=== PATIENT | male | born 1950 | race Caucasian/White ===

== ENCOUNTER 2025-06-29 19:20 | Inpatient (IN) | payer BC, SELFPAY ==
[2025-06-29] VITALS (17 sets, daily range): BP systolic 117–165; BP diastolic 68–94; PULSE 84–106; RESP 18–31; TEMP 36.7–38.3; O2SAT 94–97; BMI 25.8; BMI 28.8
--- OUTSIDE RECORDS SUMMARY | 2025-06-29 19:23 | XMS_ITS | Clinical Summary ---
Author Organization [email or web address] [facility] Address [address] [place] [id number] Care Team Providers Care Corn Chip Maker Name Role Phone Pcp, No Primary Care Provider Unavailabl e Allergies No known active allergies Medications aspirin enteric coated (ECOTRIN) 325 mg tablet Take 1 tablet by mouth once daily with a meal. 0 1 Active rosuvastatin (CRESTOR) 10 mg tabletIndications:M ixed hyperlipidemia Take 1 Tablet (10 mg) by mouth at bedtime. 90 Tablet 3 2 Active terazosin (HYTRIN) 2 mg capsuleIndications: Benign prostatic hyperplasia with urinary hesitancy Take 1 capsule by mouth once daily at bedtime 90 Capsule 3 Active Active Problems Problem Noted Date Diagnosed Date Benign prostatic hypertrophy 02/02/2012 Immunizations Immunization Administration Dates Next Due AMB INFLUENZA IIV3 (AGE 65+ YRS) PF (Flu Clinic Only) 10/23/2019 Influenza, High-dose Inactivated 09/09/2020 Influenza, High-dose Quadrivalent Inactivated Influenza, IIV3 (Age 6-35 mos) 10/11/2017,2010 Influenza, IIV3 (Age >=3 years) 10/12/2011 Influenza, IIV4 09/18/2018,09/14/2018 Influenza, Inactivated AIIV4 (Age 65+ Years) Preserv Free 08/19/2022 Pneumococcal Poly,23-Valent (Pneumovax) 11/05/20 20 Pneumococcal conj 13-Valent (Prevnar 13) 019 Tdap 11/05/2020 Family History Medical History Relation Name Comments Stroke Father Heart Disease Maternal Grandmother Other Mother brain tumor Relation Name Status Comments Father Maternal Grandmother Mother Social History Tobacco Use Types Packs/Day Years Used Date Smoking Tobacco: Never Smokeless Tobacco: Never Tobacco Cessation:Counseling Given: Yes Alcohol Use Standard Drinks/Week Comments No 0 (1 standard drink = 0.6 oz pur e alcohol) PHQ-2 Answer Date Recorded PHQ-2 Score 0 02/23/2019 Financial Resource Strain Answer Date R ecorded Difficulty of Paying Living Expenses Not on file 11/28/2021 Difficulty of Paying Living Expenses Not on file 11/28/2021 Sex and Gender Information Value Date Recorded Sex Assigned at Not on file Legal Sex Male 5:48 AM 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 NURSE 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 Gender Identity Not on file Sexual Orientation Not on file Obstetrics History Last Filed Vital Signs Vital Sign Reading Time Taken Comments Blood Pressure 128/80 09/19/2023 12:56 PM CDT Pulse 64 09/19/2023 12:56 PM CDT Temperature 36.2 C (97.1 F) 02/23/2019 2:51 PM CDT Respiratory Rate 16 09/19/2023 12:56 PM CDT Oxygen Saturation 99% 09/19/2023 12:56 PM CDT Inhaled Oxygen Concentration - - Weight 87.6 kg (193 lb 3.2 oz) 09/19/2023 12:56 PM CDT Height 178.5 cm (5' 10.28) 11/05/2020 9:[address] Body Mass Index 27.5 11/05/2020 9:35 AM ADMISSION NURSE COORDINATOR Plan of Treatment Health Maintenance Due Date Last Done Comments Zoster (shingles) series for age 50+ (1 of 2) 2001 Depression screening for age 12+ 02/24/2020 02/23/2019 BMI (ht and wt on same day) for age 18+ 11/05/2021 11/05/2020, 02/23/2019 Fecal testing non-DNA (FIT,FOBT,iFOBT) for age 45-75 03/18/2022 03/18/2021 COVID-19 vaccine series ( season) 2024 08/25/2023, 06/22/2022, 12/30/2021, Additional history exists Influenza Vaccine (#1) 2025 2, 09/09/2020, 10/23/2019, Additional history exists RSV vaccine for adults or (1 - 1-dose 75+ series) 2026 Lipids for age 45-75 08/19/2027 08/19/2022, 01/14/2015, 11/05/2011 Tetanus booster 11/05/2030 11/05/2020 Pneumococcal series for age 50+ Completed 11/05/2020, 02/23/2019 Hepatitis C screening for age 18-79 Completed 08/19/2022 Hepatitis B series for 19+ Aged Out N o longer eligible based on patient's age to complete this topic Procedures Procedure Name Priority Date/Time Associated Diagnosis Comments ANTI HCV Routine 08/19/2022 4:19 PM CDT Need for hepatitis C screening test LIPID PANEL W REFLEX MEASURED LDL Routine 08/19/2022 4:19 PM CDT Screening for lipid disorders OCCULT BLOOD IFOBT STOOL Routine 03/18/2021 2:58 PM CDT Screening for colorectal cancer from Last 3 Months or Most Recently Relevant to Health Maintenance Results * (ABNORMAL) LIPID PANEL W REFLEX MEASURED LDL [[id number]] (08/19/2022 4:19 PM CDT) CHOLESTEROL,TOTAL 206(H) 100 - 199 mg/dL 08/21/2022 10:51 AM CDT [facility] TRIGLYCERIDES 180(H) <150 mg/dL 08/21/2022 10:51 AM CDT [facility] HDL CHOLESTEROL 36(L) >40 mg/dL 10:51 AM CDT [facility] NON-HDL CHOLESTEROL 170(H) <145 mg/dl 08/21/2022 10:51 AM CDT [facility] CHOL/HDL RATIO 5.72(H) <4.50 08/21/2022 10:51 AM CDT [facility] LDL CHOLESTEROL 134(H) <=130 mg/dL 08/21/2022 10:51 AM CDT [facility] VLDL CHOLESTEROL 36(H) <=30 mg/dL 08/21/2022 10:51 AM CDT [facility] PROVIDER ORDERED STATUS RANDOM 08/21/2022 10:51 AM CDT [facility] Blood BLOOD SPECIMEN / Unknown Venipuncture / Unknown 08/19/2022 4:19 PM CDT 08/19/2022 4:20 PM CDT Gamal Magallanes DO CHEMISTRY Final Result [facility] [address] [place] [address], [place] * ANTI HCV (08/19/2022 4:19 PM CDT) HEPATITIS C ANTIBODY Non-React bennett Non-React bennett 08/21/2022 10:45 AM CDT [facility] Comment:Antibodies to HCV no t detected; does not exclude the possibility of exposure to HCV. Blood BLOOD SPECIMEN / Unknown Venipuncture / Unknown 08/19/2022 4:19 PM CDT 08/19/2022 4:20 PM CDT us Gamal Magallanes DO SEND OUTS Final Result Performing Organization Address City/[facility]/ZIP Co de Phone Number [facility] [address] [place] [address], [place] * OCCULT BLOOD IFOBT STOOL (03/18/2021 2:58 PM CDT) STOOL BLOOD ,IFOBT Negative Negative 03/20/2021 9:43 AM CDT [facility] Stool STOOL SPECIMEN / Unknown Non-Blood / Unknown 03/18/2021 2:58 PM CDT 03/18/2021 2:58 PM CDT us Paul Juarez MD LABORATORY Final Resu lt [facility] [address] [place] [address], [place] [phone] from Last 3 Months or Most Recently Relevant to Health Maintenance Insurance [employer] Care Teams Corn Chip Maker Relationship Specialty Start Date End Date Pcp, No . PCP - General 08/19/22
--- NOTE | 2025-06-29 19:44 | ED.GENADULT ---
HPI - General Adult General Chief complaint: Fever Stated complaint: Fever, bladder trouble and pain Time Seen by Provider: 06/29/25 19:30 History of Present Illness HPI narrative: CC: Fevers, Hematuria, Bladder Discomfort pt. with fevers for last 8 days. recently having trouble urinating. some blood in urine. denies n/v, diarrhea. 74-year-old man presenting to the emergency department with concern of fever and difficulty urinating. Symptoms have been going on for about 8 days. Seems to have also correlated with swelling of both testicles. Pain here as well. The right 1 has gone down; the left 1 remains more swollen. After initial onset here most recently seem to get a little bit better but symptoms have progressed again. He does recall that this has happened before it sounds like it was a minor issue treated with brief course of antibiotics - sounds like may have been a mild orchitis. Feeling feverish with sweats and chills; does not exactly describe rigors. Did have a brief episode of some mid chest discomfort. Not currently. Does not feel short of breath now. No chest pain. Daughter says he is stubborn and have not been able to get him in until now. Related Data Home Medications ?Medication ?Instructions ?Recorded ?Confirmed No Known Home Medications 06/29/25 06/29/25 Allergies Allergy/AdvReac Type Severity Reaction Status Date / Time No Known Drug Allergies Allergy Verified 06/29/25 19:34 Review of Systems Status of ROS: Reports: 6 or more systems reviewed and unremarkable except as noted in History and below [facility] Medical History BPH (benign prostatic hyperplasia) ?N40.0 - Benign prostatic hyperplasia without lower urinary tract symptoms (ICD-10) Surgical History History of tonsillectomy ?Z90.89 - Acquired absence of other organs (ICD-10) Exam Narrative: Exam Narrative: Very pleasant. Does appear uncomfortable. Rather stoic. Engages easily in conversation. Mildly tachypneic and mildly labored in his breathing. Skin is generally quite warm. Well-perfused. No rashes. No lower extremity edema. Lungs are clear. Heart is tachycardic. When his soft and full. Not particularly tender though in the suprapubic area maybe a little more uncomfortable. Genitourinary exam with moderately swollen left testicle. Soft. Quite tender to palpation. Mildly swollen right. Both are quite tender is noted. No flank pain. Const: Vital Signs, click to edit/add: Vital Signs - 24 hr 06/29/25 19:31 06/29/25 20:05 06/29/25 20:05 Temperature 101.0 F H Pulse Rate 100 Pulse Rate [Right Pulse Oximeter] 106 H Respiratory Rate 20 Blood Pressure Blood Pressure [Ri ght Upper Arm] 165/89 H Pulse Oximetry 96 95 94 Oxygen Delivery Me thod Room Air 06/29/25 20:20 06/29/25 20:21 06/29/25 20:23 Temperature Pulse Rate 103 H 101 H 102 H Pulse Rate [Right Pulse Oximeter] Respiratory Rate 30 H 26 H 30 H Blood Pressure 155/90 H 156/87 H Blood Pressure [Ri ght Upper Arm] Pulse Oximetry 96 96 95 Oxygen Delivery Me thod Room Air 06/29/25 20:24 06/29/25 20:30 06/29/25 20:32 Temperature Pulse Rate 99 97 99 Pulse Rate [Right Pulse Oximeter] Respiratory Rate 29 H 28 H 25 H Blood Pressure 151/78 H Blood Pressure [Ri ght Upper Arm] Pulse Oximetry 95 95 95 Oxygen Delivery Me thod 06/29/25 20:33 06/29/25 20:45 06/29/25 20:47 Temperature Pulse Rate 100 94 99 Pulse Rate [Right Pulse Oximeter] Respiratory Rate 29 H 27 H 21 Blood Pressure 124/94 H Blood Pressure [Ri ght Upper Arm] Pulse Oximetry 96 94 97 Oxygen Delivery Me thod 06/29/25 20:48 06/29/25 21:00 06/29/25 21:02 Temperature Pulse Rate 94 94 98 Pulse Rate [Right Pulse Oximeter] Respiratory Rate 21 31 H 18 Blood Pressure 117/68 Blood Pressure [Ri ght Upper Arm] Pulse Oximetry 96 95 96 Oxygen Delivery Me thod Documenting provider has reviewed patient's vital signs: yes Course Vital Signs Vital signs: Initial Vital Signs Temperature 101.0 F H 06/29/25 19:31 Temperature Source Temporal Artery Scan 06/29/25 19:31 Pulse Rate 106 H 06/29/25 19:31 Respiratory Rate 20 06/29/25 19:31 Blood Pressure 165/89 H 06/29/25 19:31 Blood Pressure Mean 114 H 06/29/25 19:31 Blood Pressure Position Sitting 06/29/25 19:31 Pulse Oximetry 96 06/29/25 19:31 Oxygen Delivery Method Room Air 06/29/25 19:31 Vital Signs Temperature 101.0 F H 06/29/25 19:31 Pulse Rate 106 H 06/29/25 19:31 Respiratory Rate 20 06/29/25 19:31 Blood Pressure 165/89 H 06/29/25 19:31 Pulse Oximetry 96 06/29/25 19:31 Oxygen Delivery Method Room Air 06/29/25 19:31 Temperature 101.0 F H 06/29/25 19:31 Pulse Rate 93 06/29/25 21:17 Respiratory Rate 19 06/29/25 21:17 Blood Pressure 133/77 06/29/25 21:17 Pulse Oximetry 97 06/29/25 21:17 Oxygen Delivery Method Room Air 06/29/25 20:23 Medications Administered Medications: Discontinued Medications Generic Name Dose Route Start Last Admin Trade Name Freq PRN Reason Stop Dose Admin Sodium Chloride 1,000 mls @ 1,000 mls/hr 06/29/25 19:58 06/29/25 21:23 0.9 % Sodium Chloride 1000 Ml IV 06/29/25 20:57 Infused .Q1H ONE Infusion Lactated Ringer's 1,000 mls @ 1,000 mls/hr 06/29/25 20:26 06/29/25 21:23 Lactated Ringers 1000 Ml IV 06/29/25 21:25 1,000 mls/hr .Q1H ONE Administration Ceftriaxone Sodium 1 gm/ 100 mls @ 200 mls/hr 06/29/25 20:42 06/29/25 21:24 Sodium Chloride IVPB 06/29/25 20:43 Infused ONCE ONE Infusion Ketorolac Tromethamine 30 mg 06/29/25 20:02 06/29/25 20:20 Ketorolac 30 Mg/Ml Inj IVP 06/29/25 20:03 30 mg ONCE ONE Administration Levofloxacin 750 mg 06/29/25 20:42 06/29/25 21:02 Levofloxacin 750 Mg Tablet PO 06/29/25 20:43 750 mg ONCE ONE Administration Medical Decision Making MDM Narrative Medical decision making narrative: Will be evaluating for infection and possible sepsis with genitourinary infection. Might be urinary tract infection. I suppose could be kidney stone related but does not seem to be describing that kind of pain. Does appear to have orchitis possibly epididymo-orchitis. Will request scrotal ultrasound. Lactate returns at 2.1. This +tachycardia + presenting fever of 101 already qualifies as sepsis. Was ordered for initial L bolus of normal saline. Have ordered another L in the form of LR as we moved toward 30 per kilos - would note elevated blood pressure. White count returns at over 15,000 Urinalysis looks infected. Pending scrotal ultrasound yet but will initiate antibiotics with Rocephin and levofloxacin. Discussed with hospitalist for admission. I did discuss ultrasound findings with truck sales representative. Suspect epididymitis and possible hydrocele. Radiology over-read below Indication: Testicular pain and fever Technique: Sonographic evaluation of the testes and scrotum with grayscale, color Doppler, and spectral analysis imaging Comparison: None Findings: Right: 4.5 x 3.1 x 2.6 cm. Unremarkable sonographic appearance of the parenchyma. Appropriate flow demonstrated. Large epididymal head cyst measuring 2.0 x 1.9 x 1.8 cm. Left: 4.3 x 3.1 x 3.2 cm. Unremarkable sonographic appearance of the parenchyma. Appropriate flow demonstrated. Increased size and echogenicity of the left epididymis. Hydrocele. Other: No significant scrotal wall thickening. Impression: 1. Suspect left epididymitis. 2. Large right epididymal cyst measuring 2.0 centimeters. Dictated by Aneudy Franklin MD @ 06/29/2025 9:09:21 PM Lab Data Lab results reviewed: Yes I reviewed the patient's lab results Labs: Lab Results 06/29/25 06/29/25 06/29/25 Range/Units 19:25 19:56 20:27 WBC 15.66 H (4.50-11.00) K/uL RBC 4.39 (4.30-5.90) m/uL Hgb 12.8 L (13.5-17.5) gm/dL Hct 38.2 (37.0-53.0) % MCV 87 (80-100) fL MCH 29 (26-34) pg MCHC 34 (32-36) gm/dL RDW Coeff of Jeremy 13.6 (11.5-15.5) % Plt Count 260 (140-440) K/uL Neut % (Auto) 85.6 H (42.0-72.0) % Lymph % (Auto) 7.8 L (20-44) % Stark % (Auto) 4.6 (0.0-11.0) % Eos % (Auto) 0.2 (0.0-7.0) % Baso % (Auto) 0.1 (0.0-3.0) % Neut # (Auto) 13.40 H (1.7-7.0) K/uL Lymph # (Auto) 1.20 (0.90-2.90) K/uL Stark # (Auto) 0.70 (0.00-0.90) K/UL Eos # (Auto) 0.00 (0.00-0.50) K/uL Baso # (Auto) 0.00 (0.00-0.30) K/uL Abs Immat Gran (auto) 0.30 (0.00-0.30) K/uL Imm/Tot Granulo (auto) 1.7 % Sodium 136 (135-149) mmol/L Potassium 4.2 (3.6-5.1) mmol/L Chloride 104 (96-114) mmol/L Carbon Dioxide 21 (20-32) mmol/L Anion Gap 11 (7-15) mEq/L BUN 26 (7-30) mg/dL Creatinine 1.4 (0.5-1.5) mg/dL Estimated Creat Clear 48.52 Estimated GFR 53 ml/min Glucose 220 H (60-115) mg/dL Lactate 2.1 H (0.5-1.9) mmol/L Calcium 8.7 (8.4-10.6) mg/dL Troponin I 0.02 (0.01-0.04) ng/mL C-Reactive Protein 29.7 H (0.5-1.0) mg/dL Urine Color Light yellow (Yellow) Urine Appearance Cloudy A (Clear) Urine pH 6.0 (5.0-8.5) Ur Specific [place] 1.015 (1.000-1.030) Urine Protein 2+ A (Negative) Urine Glucose (UA) Negative (Negative) Urine Ketones Negative (Negative) Urine Blood 1+ A (Negative) Urine Nitrite Positive A (Negative) Urine Bilirubin Negative (Negative) Urine Urobilinogen 1.0 (0.2-1.0) Ur Leukocyte Esterase 3+ A (Negative) Urine RBC 2-5 A (0-2) Urine WBC >100 A (0-5) Ur Squamous Epith Cells None (None-Few) Urine Bacteria Many A (None) SARS-CoV-2 (PCR) Negative SARS-CoV-2 (Negative) Influenza Type A (PCR) Negative PCR FLU A (Negative) Influenza Type B (PCR) Negative PCR FLU B (Negative) ECG Data Attestation: I personally reviewed and interpreted this ECG as follows: (Sinus tachycardia at 101. Do not appreciate ischemic changes) Critical Care Time Critical Care Time Critical Care Time: Yes Attestation: The patient required my highest level preparedness to intervene emergently and I personally spent this critical care time directly and personally managing the patient. This critical care time included: Obtaining a history; Examining the patient; Pulse oximetry; Ordering and reviewing of studies; Arranging urgent treatment with development of a management plan; Evaluation of patients response to treatment; Frequent reassessment discussions with other providers. This critical care time was performed to assess and manage the high probability of imminent life-threatening deterioration that could result in multiorgan failure. It was exclusive of separate billable procedures and treating other patients and teaching time. Total Critical Care Time in Minutes: 50 Discharge Plan Discharge Clinical Impression: Sepsis, Acute UTI, Epididymitis Patient Disposition: Admitted As Inpatient Condition: Stable
--- NOTE | 2025-06-29 19:56 | CRLHL7_ITS ---
For Patients: As a result of the Century Cures Act, medical imaging exams and procedure reports are released immediately into your electronic medical record. You may view this report before your referring provider. If you have questions, please contact your health care provider. Indication: Testicular pain and fever Technique: Sonographic evaluation of the testes and scrotum with grayscale, color Doppler, and spectral analysis imaging Comparison: None Findings: Right: 4.5 x 3.1 x 2.6 cm. Unremarkable sonographic appearance of the parenchyma. Appropriate flow demonstrated. Large epididymal head cyst measuring 2.0 x 1.9 x 1.8 cm. Left: 4.3 x 3.1 x 3.2 cm. Unremarkable sonographic appearance of the parenchyma. Appropriate flow demonstrated. Increased size and echogenicity of the left epididymis. Hydrocele. Other: No significant scrotal wall thickening. Impression: 1. Suspect left epididymitis. 2. Large right epididymal cyst measuring 2.0 centimeters. Dictated by Aneudy Franklin MD @ 06/29/2025 9:09:21 PM (Electronically Signed)
[2025-06-29 20:18] LABS: Lactate Sepsis w/Reflex* 2.1 mmol/L (0.5-1.9)
[2025-06-29 20:20] LABS: Hematocrit 38.2 % (37.0-53.0); Hemoglobin* 12.8 gm/dL (13.5-17.5); Immature Granulocytes Pct Auto 1.7 %; Mean Corpuscular HGB Conc 34 gm/dL (32-36); Mean Corpuscular Hemoglobin 29 pg (26-34); Mean Corpuscular Volume 87 fL (80-100); RDW Coefficient of Variation % 13.6 % (11.5-15.5); Red Blood Count 4.39 m/uL (4.30-5.90); White Blood Count* 15.66 K/uL (4.50-11.00)
[2025-06-29 20:22] LABS: Chloride* 104 mmol/L (96-114)
[2025-06-29 20:23] LABS: Potassium* 4.2 mmol/L (3.6-5.1); Sodium* 136 mmol/L (135-149)
[2025-06-29 20:23] LABS: Appearance Urine Cloudy (Clear)
[2025-06-29 20:26] LABS: Anion Gap 11 mEq/L (7-15); Blood Urea Nitrogen* 26 mg/dL (7-30); Calcium* 8.7 mg/dL (8.4-10.6); Carbon Dioxide* 21 mmol/L (20-32); Creatinine* 1.4 mg/dL (0.5-1.5); Est. Creatinine Clearance* 48.52; Estimated Glomerular Filt Rate 53 ml/min; Glucose* 220 mg/dL (60-115)
[2025-06-29 20:27] LABS: Immature Granulocytes Abs Auto 0.30 K/uL (0.00-0.30); Lymphocytes Absolute Auto 1.20 K/uL (0.90-2.90); Slide Review Reflex No
[2025-06-29] MEDS: cefTRIAXone 1 GM in 0.9 % SODIUM CHLORIDE Mini-bag 100 ML IVPB (20:55)
[2025-06-29 21:12] LABS: PCR FLU A Negative PCR FLU A (Negative); PCR FLU B Negative PCR FLU B (Negative); SARS PCR* Negative SARS-CoV-2 (Negative)
[2025-06-29] MEDS: LACTATED RINGERS 1000 ML 1,000 ML IV (21:23)
[2025-06-29 21:42] LABS: Lactate Sepsis 2 Hour 1.6 mmol/L (0.5-1.9)
--- NOTE | 2025-06-29 22:42 | PM.IMHP1 ---
Assessment and Plan Assessment and plan (1) Sepsis: Problem comment: - Meets SIRS criteria plus source of infection: UTI and epididymitis. Sepsis was initially severe with a lactate of greater than 2, which is now down to 1.6 after a fluid bolus, severe sepsis has resolved. Status: Acute (2) Acute UTI: Status: Acute (3) Epididymitis: Status: Acute (4) BPH (benign prostatic hyperplasia): Problem comment: Used to take terazosin which worked for him, but he ran out a few years ago. Status: Chronic (5) Left-sided chest pain: Problem comment: Patient has no cardiac history. He takes daily aspirin 325 mg. His family notes that he fell against his left shoulder a few days ago and this is about the time frame in which he has been having pain with movement that wraps around from his back to his chest. EKG and troponin are reassuring. Obtain chest x-ray and left shoulder x-rays. Status: Acute Plan 74-year-old male with history of spermatocele and epididymitis on the right in 2020, now presents with left epididymitis and UTI. Symptoms have been going on for 15 days and are associated with weakness and falls as well. He was initially in severe sepsis, however this has improved after an IV fluid bolus and he was started on ceftriaxone and levofloxacin in the emergency department. Will continue ceftriaxone and levofloxacin for epididymitis and UTI; I have renally dose the levofloxacin. Await urine and blood culture results. Patient would likely benefit from referral back to urologist as an outpatient. Total Time Spent Total Time Spent: Time spent: Today I spent 75 minutes seeing the patient, answering patient and family's questions, discussing the patient with ER staff, reviewing Expanse and EPIC notes/diagnostics, discussing the care plan with our care team that includes social work, PT/OT, pharmacy, RT, long term and documenting my impressions and plan in the medical record. MEDICAL NECESSITY FOR HOSPITALIZATION Anticipated midnights in the hospital: 2 Admitting diagnosis: Sepsis, Epididymitis and urinary tract infection Hospitalist- H&P: HPI History of Present Illness Time Seen by Provider: 21:30 Date Seen: 06/29/25 Chief complaint: Fever, bladder trouble and pain Narrative: Nickolas Lund is a 74 year old male with a h/o spermatocele and epididymitis in 2020 who presents with 15 days of fever, scrotal swelling and pain, hematuria, and dysuria. His , Ana Cristina, and his daughter, Keely, are in the room with him. 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 His family tells me that he is very stubborn and refused to come in even though he has been having all these symptoms for so many days. His tells me that his scrotum started looking red few days ago. They told the nursing staff that his legs got weak and he fell twice in the past few days, hitting his left shoulder. He told me that he has had intermittent pain in the last 4 days that starts in his back and wraps around to his left upper chest. This last about 5 minutes and then resolves on its own. Moving around brings on this pain and can make it worse. He denies any cardiac history. His family says he is supposed to be on medication for a large prostate, but he ran out a while ago and has not seen his doctor for 3 years. Review of Systems Status of ROS: Reports: 10 or more systems reviewed and unremarkable except as noted in History and below Medical Decision Making Medical Decision Making Code Status: DNR/DNI During This Stay, Who Would You Like To Make Decisions For You In The Event You Are Unable To Make Them For Yourself?: , Ana Cristina [facility] Medical History (Updated 06/29/25 @ 23:39 by Kellen Conway MD) Single spermatocele of right epididymis ?N43.41 - Spermatocele of epididymis, single (ICD-10) BPH (benign prostatic hyperplasia) ?N40.0 - Benign prostatic hyperplasia without lower urinary tract symptoms (ICD-10) Surgical History History of tonsillectomy ?Z90.89 - Acquired absence of other organs (ICD-10) Family History (Updated 06/29/25 @ 23:20 by Kellen Conway MD) Mother Brain tumor Social History (Updated 06/29/25 @ 23:20 by Kellen Conway MD) Narrative: . [place] speaking. Denies tobacco or alcohol use. What is your current living situation?: I presently have a place to live Problems where you live: no known problems Problems where you live details: n/a In the past 12 months, utilities in danger of being shut off: no In past 12 months, lack of transportation kept you from medical appts, meetings, work, or getting things needed for daily living: no In the past 12 mos, have been you worried that your food would run out before you had money to buy more?: never true In the past 12 mos, the food you bought just didn't last and you didn't have money to buy more?: never true Smoking Status: Never smoker How often do you have a drink containing alcohol: never AUDIT-C Alcohol total score: 0 How often does anyone, including family, friends and others, physically hurt you: never How often does anyone, including family, friends and others, insult or talk down to you: never How often does anyone, including family, friends and others, threaten you with harm: never How often does anyone, including family, friends and others, scream or curse at you: never Meds Home Medications and Allergies Home Medications ?Medication ?Instructions ?Recorded ?Confirmed ?Type No Known Home Medications 06/29/25 06/29/25 History Allergies Allergy/AdvReac Type Severity Reaction Status Date / Time No Known Drug Allergies Allergy Verified 06/29/25 19:34 Exam Narrative: Exam Narrative: General: No acute distress. Awake alert oriented x3. HEENT: Normocephalic atraumatic, pupils equally round and reactive to light and accommodation. Oropharynx clear. Mucous membranes are moist. No cervical lymphadenopathy, thyromegaly or carotid bruits. No JVD. Cardiovascular: Regular rate and rhythm. No murmurs, gallops, or rubs. Chest: Nontender to palpation. No increased work of breathing. Clear to auscultation bilaterally. No crackles or wheezes. Back: Nontender to palpation. Abdomen: Bowel sounds present. Soft, nondistended, nontender. No hepatosplenomegaly or masses. Genitourinary: Circumcised male without any penile deformities or lesions. Scrotum is erythematous, no induration. Both testicles are swollen, left much greater than right. Right testicle is mildly tender to palpation, left testicle is exquisitely tender to palpation. Extremities: No edema, no cyanosis or clubbing. Skin: No jaundice, no pallor, with the exception of erythema over the testicles, no other rashes are noted on visible skin. Date exam performed 06/29/2025 Time exam performed 9:30 p.m. Focused exam: I have reassessed tissue perfusion after bolus given. Current stage of sepsis: Sepsis, not severe. Const: Vital Signs, click to edit/add: Vital Signs - 24 hr 06/29/25 19:31 06/29/25 20:05 06/29/25 20:05 Temperature 101.0 F H Pulse Rate 100 Pulse Rate [Pulse Oximeter] Pulse Rate [Right Pulse Oximeter] 106 H Respiratory Rate 20 Blood Pressure Blood Pressure [Le ft Arm] Blood Pressure [Ri ght Upper Arm] 165/89 H Pulse Oximetry 96 95 94 Oxygen Delivery Me thod Room Air 06/29/25 20:20 06/29/25 20:21 06/29/25 20:23 Temperature Pulse Rate 103 H 101 H 102 H Pulse Rate [Pulse Oximeter] Pulse Rate [Right Pulse Oximeter] Respiratory Rate 30 H 26 H 30 H Blood Pressure 155/90 H 156/87 H Blood Pressure [Le ft Arm] Blood Pressure [Ri ght Upper Arm] Pulse Oximetry 96 96 95 Oxygen Delivery Me thod Room Air 06/29/25 20:24 06/29/25 20:30 06/29/25 20:32 Temperature Pulse Rate 99 97 99 Pulse Rate [Pulse Oximeter] Pulse Rate [Right Pulse Oximeter] Respiratory Rate 29 H 28 H 25 H Blood Pressure 151/78 H Blood Pressure [Le ft Arm] Blood Pressure [Ri ght Upper Arm] Pulse Oximetry 95 95 95 Oxygen Delivery Me thod 06/29/25 20:33 06/29/25 20:45 06/29/25 20:47 Temperature Pulse Rate 100 94 99 Pulse Rate [Pulse Oximeter] Pulse Rate [Right Pulse Oximeter] Respiratory Rate 29 H 27 H 21 Blood Pressure 124/94 H Blood Pressure [Le ft Arm] Blood Pressure [Ri ght Upper Arm] Pulse Oximetry 96 94 97 Oxygen Delivery Me thod 06/29/25 20:48 06/29/25 21:00 06/29/25 21:02 Temperature Pulse Rate 94 94 98 Pulse Rate [Pulse Oximeter] Pulse Rate [Right Pulse Oximeter] Respiratory Rate 21 31 H 18 Blood Pressure 117/68 Blood Pressure [Le ft Arm] Blood Pressure [Ri ght Upper Arm] Pulse Oximetry 96 95 96 Oxygen Delivery Me thod 06/29/25 21:15 06/29/25 21:17 06/29/25 21:40 Temperature 98.0 F Pulse Rate 87 93 Pulse Rate [Pulse Oximeter] 84 Pulse Rate [Right Pulse Oximeter] Respiratory Rate 18 19 20 Blood Pressure 133/77 Blood Pressure [Le ft Arm] 137/86 Blood Pressure [Ri ght Upper Arm] Pulse Oximetry 96 97 96 Oxygen Delivery Me thod Room Air Hospitalist - H&P: Result Labs Labs: Short CBC 06/29/25 Range/Units 19:25 WBC 15.66 H (4.50-11.00) K/uL Hgb 12.8 L (13.5-17.5) gm/dL Hct 38.2 (37.0-53.0) % Plt Count 260 (140-440) K/uL BMP 06/29/25 19:25 Sodium 136 Potassium 4.2 Chloride 104 Carbon Dioxide 21 BUN 26 Creatinine 1.4 Glucose 220 H Calcium 8.7 Cardiac Enzymes 06/29/25 Range/Units 19:25 Troponin I 0.02 (0.01-0.04) ng/mL Urine 06/29/25 Range/Units 19:56 Urine Color Light yellow (Yellow) Urine Appearance Cloudy A (Clear) Urine pH 6.0 (5.0-8.5) Ur Specific [place] 1.015 (1.000-1.030) Urine Protein 2+ A (Negative) Urine Glucose (UA) Negative (Negative) 06/29/2025 EKG: Sinus tachycardia, 101 beats per minute, otherwise normal EKG. Ordering Physician: Paul Greer M.D. Date of Service: 06/29/25 Procedure(s): US scrotum Accession Number(s): [id number] cc: Paul Greer M.D.; LIA GODOY D.O.~ For Patients: As a result of the 21st Century Cures Act, medical imaging exams and procedure reports are released immediately into your electronic medical record. You may view this report before your referring provider. If you have questions, please contact your health care provider. Indication: Testicular pain and fever Technique: Sonographic evaluation of the testes and scrotum with grayscale, color Doppler, and spectral analysis imaging Comparison: None Findings: Right: 4.5 x 3.1 x 2.6 cm. Unremarkable sonographic appearance of the parenchyma. Appropriate flow demonstrated. Large epididymal head cyst measuring 2.0 x 1.9 x 1.8 cm. Left: 4.3 x 3.1 x 3.2 cm. Unremarkable sonographic appearance of the parenchyma. Appropriate flow demonstrated. Increased size and echogenicity of the left epididymis. Hydrocele. Other: No significant scrotal wall thickening. Impression: 1. Suspect left epididymitis. 2. Large right epididymal cyst measuring 2.0 centimeters. Dictated by Aneudy Franklin MD @ 06/29/2025 9:09:21 PM (Electronically Signed)
--- NOTE | 2025-06-29 22:49 | CRLHL7_ITS ---
For Patients: As a result of the Cures Act, medical imaging exams and procedure reports are released immediately into your electronic medical record. You may view this report before your referring provider. If you have questions, please contact your health care provider. INDICATION: Sepsis, cough, fever. TECHNIQUE: Chest 1 view. COMPARISON: None. FINDINGS: Cardiovascular and mediastinum: Cardiomediastinal silhouette is within normal limits. Lungs and pleural spaces: Mild left basilar streaky opacities. No pleural effusions or pneumothorax. Bones and soft tissues: No significant findings. IMPRESSION: Mild left basilar streaky opacities, which may represent atelectasis or infiltrates. Dictated by John Sherman MD @ 06/30/2025 12:30:31 AM (Electronically Signed)
--- NOTE | 2025-06-29 23:29 | CRLHL7_ITS ---
For Patients: As a result of the Cures Act, medical imaging exams and procedure reports are released immediately into your electronic medical record. You may view this report before your referring provider. If you have questions, please contact your health care provider. INDICATION: Trauma, fall. TECHNIQUE: Left shoulder 3 views. COMPARISON: None. FINDINGS: No acute fractures or malalignment. Acromioclavicular joint degenerative changes. Glenohumeral joint is maintained. IMPRESSION: No acute osseous abnormality. Dictated by John Sherman MD @ 06/30/2025 12:31:30 AM (Electronically Signed)
[2025-06-30] VITALS (11 sets, daily range): BP systolic 107–162; BP diastolic 78–98; PULSE 62–81; RESP 16–28; TEMP 36.3–36.6; O2SAT 94–98
[2025-06-30] MEDS: ACETAMINOPHEN 325 MG TABLET 650 MG PO ×2 (02:46→22:28)
[2025-06-30] MEDS: IBUPROFEN 400 MG TABLET 600 MG PO ×3 (07:33→17:32)
[2025-06-30] MEDS: SODIUM CHLORIDE 0.9 % (FLUSH) 10 ML SYRINGE 5 ML IVF ×2 (07:35→20:24)
--- NOTE | 2025-06-30 10:11 | P.IMPN_ITS ---
Assessment and Plan Assessment and plan (1) Sepsis: Problem comment: - Meets SIRS criteria plus source of infection: UTI and epididymitis. Sepsis was initially severe with a lactate of greater than 2, which is now down to 1.6 after a fluid bolus, severe sepsis has resolved. - status post 2 L IV fluids Status: Acute (2) Acute UTI: Problem comment: - status post 2 L IV fluids, will start him on IV fluid maintenance on 06/30. -currently on ceftriaxone and levofloxacin, will deescalate once we get urine/blood cultures results. -US CDC recommendations For epididymitis: 500 mg orally once a day for 10 days (When dosage in patients with CrCl at least 50 mL/min is 500 mg every 24 hours): -CrCl 20 to 49 mL/min: 500 mg orally or IV once, followed by 250 mg orally or IV every 24 hours -Ordered gonorrhea and chlamydia testing to rule out STDs and the need to treat for an STD. -will monitor for his kidney function to improve as his CrCl currently is 48.5, once it improves we can increase his levofloxacin dose to 500. -if kidney function does not improve then we will assume that he has CKD as we do not have prior test results to compare with. Status: Acute (3) Epididymitis: Problem comment: As above Status: Acute (4) BPH (benign prostatic hyperplasia): Problem comment: Used to take terazosin which worked for him, but he ran out a few years ago. Status: Chronic (5) Left-sided chest pain: Problem comment: Patient has no cardiac history. He takes daily aspirin 325 mg. His family notes that he fell against his left shoulder a few days ago and this is about the time frame in which he has been having pain with movement that wraps around from his back to his chest. EKG and troponin are reassuring. Obtain chest x- ray and left shoulder x-rays. 06/30: No chest pain, or chest discomfort today. Status: Resolved Total Time Spent Total Time Spent: Today I spent 50 minutes seeing the patient, reviewing Expanse and EPIC notes/diagnostics, discussing the care plan with our care time that includes social work, PT/OT, pharmacy, RT, long term and documenting my impressions and plan in the medical record. Subjective Date Seen: 06/30/25 Interval history: Patient was seen and examined at bedside. Afebrile overnight. He denies abdominal pain, chest pain, shortness of breath, lightheadedness or chills. He states that he still feel pain in his left scrotal area. He also states that he needs to push when he urinates, a problem that he did not have before, though it seems he has history of BPH. Exam Narrative: Exam Narrative: Physical exam GENERAL: Comfortable, no acute distress. HEAD AND NECK: Atraumatic, normocephalic CARDIOVASCULAR: RRR. Normal S1, S2. RESPIRATORY: Clear to auscultation B/L. Good air entry B/L. GASTROINTESTINAL: Not distended, not tender to palpation. NEUROLOGY: Alert, awake, oriented. Normal speech. GENITOURINARY: No discharge out of his penis. Red, tender and swollen left scrotum. Warm to touch. No fluctuation. PSYCH: Normal mood, normal affect. Const: Vital Signs, click to edit/add: Vital Signs - 24 hr 06/29/25 19:31 06/29/25 20:05 06/29/25 20:05 Temperature 101.0 F H Pulse Rate 100 Pulse Rate [Pulse Oximeter] Pulse Rate [Right Pulse Oximeter] 106 H Pulse Rate [orthos tatic lying] Pulse Rate [orthos tatic sitting] Pulse Rate [orthos tatic standing] Respiratory Rate 20 Blood Pressure Blood Pressure [Le ft Arm] Blood Pressure [Ri ght Arm] Blood Pressure [Ri ght Upper Arm] 165/89 H Blood Pressure [or thostatic lying] Blood Pressure [or thostatic sitting] Blood Pressure [or thostatic standing ] Pulse Oximetry 96 95 94 Oxygen Delivery Me thod Room Air 06/29/25 20:20 06/29/25 20:21 06/29/25 20:23 Temperature Pulse Rate 103 H 101 H 102 H Pulse Rate [Pulse Oximeter] Pulse Rate [Right Pulse Oximeter] Pulse Rate [orthos tatic lying] Pulse Rate [orthos tatic sitting] Pulse Rate [orthos tatic standing] Respiratory Rate 30 H 26 H 30 H Blood Pressure 155/90 H 156/87 H Blood Pressure [Le ft Arm] Blood Pressure [Ri ght Arm] Blood Pressure [Ri ght Upper Arm] Blood Pressure [or thostatic lying] Blood Pressure [or thostatic sitting] Blood Pressure [or thostatic standing ] Pulse Oximetry 96 96 95 Oxygen Delivery Me thod Room Air 08/02/25 20:24 06/29/25 20:30 06/29/25 20:32 Temperature Pulse Rate 99 97 99 Pulse Rate [Pulse Oximeter] Pulse Rate [Right Pulse Oximeter] Pulse Rate [orthos tatic lying] Pulse Rate [orthos tatic sitting] Pulse Rate [orthos tatic standing] Respiratory Rate 29 H 28 H 25 H Blood Pressure 151/78 H Blood Pressure [Le ft Arm] Blood Pressure [Ri ght Arm] Blood Pressure [Ri ght Upper Arm] Blood Pressure [or thostatic lying] Blood Pressure [or thostatic sitting] Blood Pressure [or thostatic standing ] Pulse Oximetry 95 95 95 Oxygen Delivery Me thod 06/29/25 20:33 06/29/25 20:45 06/29/25 20:47 Temperature Pulse Rate 100 94 99 Pulse Rate [Pulse Oximeter] Pulse Rate [Right Pulse Oximeter] Pulse Rate [orthos tatic lying] Pulse Rate [orthos tatic sitting] Pulse Rate [orthos tatic standing] Respiratory Rate 29 H 27 H 21 Blood Pressure 124/94 H Blood Pressure [Le ft Arm] Blood Pressure [Ri ght Arm] Blood Pressure [Ri ght Upper Arm] Blood Pressure [or thostatic lying] Blood Pressure [or thostatic sitting] Blood Pressure [or thostatic standing ] Pulse Oximetry 96 94 97 Oxygen Delivery Me thod 06/29/25 20:48 06/29/25 21:00 06/29/25 21:02 Temperature Pulse Rate 94 94 98 Pulse Rate [Pulse Oximeter] Pulse Rate [Right Pulse Oximeter] Pulse Rate [orthos tatic lying] Pulse Rate [orthos tatic sitting] Pulse Rate [orthos tatic standing] Respiratory Rate 21 31 H 18 Blood Pressure 117/68 Blood Pressure [Le ft Arm] Blood Pressure [Ri ght Arm] Blood Pressure [Ri ght Upper Arm] Blood Pressure [or thostatic lying] Blood Pressure [or thostatic sitting] Blood Pressure [or thostatic standing ] Pulse Oximetry 96 95 96 Oxygen Delivery Me thod 06/29/25 21:15 06/29/25 21:17 06/29/25 21:40 Temperature 98.0 F Pulse Rate 87 93 Pulse Rate [Pulse Oximeter] 84 Pulse Rate [Right Pulse Oximeter] Pulse Rate [orthos tatic lying] Pulse Rate [orthos tatic sitting] Pulse Rate [orthos tatic standing] Respiratory Rate 18 19 20 Blood Pressure 133/77 Blood Pressure [Le ft Arm] 137/86 Blood Pressure [Ri ght Arm] Blood Pressure [Ri ght Upper Arm] Blood Pressure [or thostatic lying] Blood Pressure [or thostatic sitting] Blood Pressure [or thostatic standing ] Pulse Oximetry 96 97 96 [facility] 06/29/25 21:40 06/30/25 01:03 06/30/25 01:17 Temperature 97.5 F L Pulse Rate 74 Pulse Rate [Pulse Oximeter] 78 Pulse Rate [Right Pulse Oximeter] Pulse Rate [orthos tatic lying] Pulse Rate [orthos tatic sitting] Pulse Rate [orthos tatic standing] Respiratory Rate 20 20 Blood Pressure Blood Pressure [Le ft Arm] 126/78 Blood Pressure [Ri ght Arm] Blood Pressure [Ri ght Upper Arm] Blood Pressure [or thostatic lying] Blood Pressure [or thostatic sitting] Blood Pressure [or thostatic standing ] Pulse Oximetry 96 98 Oxygen Delivery [facility] Room Air Room Air 06/30/25 04:58 06/30/25 04:58 06/30/25 09:11 Temperature 97.8 F 97.8 F Pulse Rate Pulse Rate [Pulse Oximeter] 81 76 Pulse Rate [Right Pulse Oximeter] Pulse Rate [orthos tatic lying] 81 Pulse Rate [orthos tatic sitting] 81 Pulse Rate [orthos tatic standing] 81 Respiratory Rate 22 16 Blood Pressure Blood Pressure [Le ft Arm] 107/81 Blood Pressure [Ri ght Arm] 127/89 Blood Pressure [Ri ght Upper Arm] Blood Pressure [or thostatic lying] 119/80 Blood Pressure [or thostatic sitting] 122/88 Blood Pressure [or thostatic standing ] 107/81 Pulse Oximetry 95 96 [facility] Room Air Labs Labs: Laboratory Results - last 24 hr 06/29/25 06/29/25 06/29/25 19:25 19:56 20:27 WBC 15.66 H RBC 4.39 Hgb 12.8 L Hct 38.2 MCV 87 MCH 29 MCHC 34 RDW Coeff of Jeremy 13.6 Plt Count 260 Neut % (Auto) 85.6 H Lymph % (Auto) 7.8 L [place] % (Auto) 4.6 Eos % (Auto) 0.2 Baso % (Auto) 0.1 Neut # (Auto) 13.40 H Lymph # (Auto) 1.20 [place] # (Auto) 0.70 Eos # (Auto) 0.00 Baso # (Auto) 0.00 Abs Immat Gran (auto) 0.30 Imm/Tot Granulo (auto) 1.7 Sodium 136 Potassium 4.2 Chloride 104 Carbon Dioxide 21 Anion Gap 11 BUN 26 Creatinine 1.4 Estimated Creat Clear 48.52 Estimated GFR 53 Glucose 220 H Lactate 2.1 H Calcium 8.7 Troponin I 0.02 C-Reactive Protein 29.7 H Urine Color Light yellow Urine Appearance Cloudy A Urine pH 6.0 Ur Specific [place] 1.015 Urine Protein 2+ A Urine Glucose (UA) Negative Urine Ketones Negative Urine Blood 1+ A Urine Nitrite Positive A Urine Bilirubin Negative Urine Urobilinogen 1.0 Ur Leukocyte Esterase 3+ A Urine RBC 2-5 A Urine WBC >100 A Ur Squamous Epith Cells None Urine Bacteria Many A SARS-CoV-2 (PCR) Negative SARS-CoV-2 Influenza Type A (PCR) Negative PCR FLU A Influenza Type B (PCR) Negative PCR FLU B 06/29/25 21:23 WBC RBC Hgb Hct MCV MCH MCHC RDW Coeff of Jeremy Plt Count Neut % (Auto) Lymph % (Auto) [place] % (Auto) Eos % (Auto) Baso % (Auto) Neut # (Auto) Lymph # (Auto) [place] # (Auto) Eos # (Auto) Baso # (Auto) Abs Immat Gran (auto) Imm/Tot Granulo (auto) Sodium Potassium Chloride Carbon Dioxide Anion Gap BUN Creatinine Estimated Creat Clear Estimated GFR Glucose Lactate 1.6 Calcium Troponin I C-Reactive Protein Urine Color Urine Appearance Urine pH Ur Specific [place] Urine Protein Urine Glucose (UA) Urine Ketones Urine Blood Urine Nitrite Urine Bilirubin Urine Urobilinogen Ur Leukocyte Esterase Urine RBC Urine WBC Ur Squamous Epith Cells Urine Bacteria SARS-CoV-2 (PCR) Influenza Type A (PCR) Influenza Type B (PCR)
[2025-06-30 11:29] LABS: Chlamydia DNA Amplified* NOT DETECTED (No Detected); GC DNA Amplified* NOT DETECTED (No Detected)
[2025-06-30] MEDS: SENNOSIDES/DOCUSATE TABLET 1 TAB PO ×2 (13:12→20:24)
[2025-06-30] MEDS: MAG HYDROX/ALUMINUM HYD/SIMETH 30 ML ORAL.SUSP 15 ML PO (18:04)
--- NOTE | 2025-06-30 18:07 | PC.NURSE ---
Addendum entered by Elli Morillo RN 06/30/25 18:40: Tele=NSR Original Note: End of Shift: Patient pleasant and cooperative. Patient vitally stable, lungs clear, BS WNL, IV currently running NS at 125. Patient rates groin/testicular pain at most 5/10 and lowest 3/10, only scheduled ibuprofen given, patient declines tylenol or oxy. Patient did report feeling pressure/discomfort in lower abdomen, patient thinking it could be gas, Maalox given. Patient tolerating regular diet and urinating well, patient puts effort into urinating(pushing), patient had 1 small hard BM. Scrotum elevated on towel and active ice used on an off.
[2025-06-30] MEDS: cefTRIAXone 1 GM in 0.9 % SODIUM CHLORIDE Mini-bag 100 ML IVPB (19:48)
[2025-06-30] MEDS: ENOXAPARIN 40 MG/0.4 ML INJ SUBCUT (20:23)
[2025-07-01 02:24] VITALS: BP 148/99; PULSE 76; RESP 20; TEMP 36.4; O2SAT 97
--- NOTE | 2025-07-01 05:57 | PC.NURSE ---
end of shift [id number]: Pt AxOx4, pleasant, cooperative with cares. Pt reports groin/testicular pain during shift that was managed with ice, elevation, and PRN medication. Relief noted by Pt. Pt urinating frequently with grunting pushing efforts to urinate. SBA with transfers. SL. Denies CP/SOB/N. Pt able to rest for majority of the night. Pt appears resting with call light in reach.
[2025-07-01 06:16] LABS: Hematocrit 38.1 % (37.0-53.0); Hemoglobin* 12.6 gm/dL (13.5-17.5); Mean Corpuscular HGB Conc 33 gm/dL (32-36); Mean Corpuscular Hemoglobin 29 pg (26-34); Mean Corpuscular Volume 87 fL (80-100); Red Blood Count 4.37 m/uL (4.30-5.90); White Blood Count* 13.38 K/uL (4.50-11.00)
[2025-07-01 06:17] LABS: Slide Review Reflex No
[2025-07-01 06:29] LABS: Albumin* 3.5 g/dL (3.3-5.0); Chloride* 104 mmol/L (96-114); Sodium* 136 mmol/L (135-149)
[2025-07-01 06:30] LABS: Potassium* 4.0 mmol/L (3.6-5.1)
[2025-07-01 06:32] LABS: Alanine Aminotransferase* 83 U/L (4-50); Alkaline Phosphatase* 313 U/L (40-150); Anion Gap 10 mEq/L (7-15); Aspartate Amino Transferase* 84 U/L (12-35); Bilirubin Total* 0.5 mg/dL (0.1-1.5); Blood Urea Nitrogen* 15 mg/dL (7-30); Carbon Dioxide* 22 mmol/L (20-32); Creatinine* 0.9 mg/dL (0.5-1.5); Est. Creatinine Clearance* 67.93; Estimated Glomerular Filt Rate 90 ml/min; Total Protein* 6.8 g/dL (6.0-8.3)
[2025-07-01 06:33] LABS: Calcium* 9.1 mg/dL (8.4-10.6); Glucose* 137 mg/dL (60-115)
[2025-07-01 07:00] VITALS: BP 148/96; PULSE 77; PULSE 85; RESP 18; TEMP 36.4; O2SAT 97
[2025-07-01] MEDS: SODIUM CHLORIDE 0.9 % (FLUSH) 10 ML SYRINGE 5 ML IVF ×2 (07:57→21:09)
[2025-07-01] MEDS: SENNOSIDES/DOCUSATE TABLET 1 TAB PO ×2 (07:57→21:09)
[2025-07-01] MEDS: IBUPROFEN 400 MG TABLET 600 MG PO ×3 (07:57→17:51)
[2025-07-01 11:00] VITALS: BP 141/89; PULSE 75; RESP 16; TEMP 36.4; O2SAT 95
--- NOTE | 2025-07-01 14:53 | P.IMPN_ITS ---
Assessment and Plan Assessment and plan (1) Sepsis: Problem comment: - Meets SIRS criteria plus source of infection: UTI and epididymitis. Sepsis was initially severe with a lactate of greater than 2, which is now down to 1.6 after a fluid bolus, severe sepsis has resolved. - status post 2 L IV fluids Status: Resolved (2) Acute UTI: Problem comment: - status post 2 L IV fluids, will start him on IV fluid maintenance on 06/30. -currently on ceftriaxone and levofloxacin, will deescalate once we get urine/blood cultures results. -[place] CDC recommendations For epididymitis: 500 mg orally once a day for 10 days (When dosage in patients with CrCl at least 50 mL/min is 500 mg every 24 hours): -CrCl 20 to 49 mL/min: 500 mg orally or IV once, followed by 250 mg orally or IV every 24 hours -Ordered gonorrhea and chlamydia testing to rule out STDs and the need to treat for an STD. -07/01: Kidney function improved. Waiting for the blood culture results and for the antibiotic sensitivity Status: Acute (3) Epididymitis: Problem comment: As above Status: Acute (4) BPH (benign prostatic hyperplasia): Problem comment: Used to take terazosin which worked for him, but he ran out a few years ago. Status: Chronic (5) Left-sided chest pain: Problem comment: Patient has no cardiac history. He takes daily aspirin 325 mg. His family notes that he fell against his left shoulder a few days ago and this is about the time frame in which he has been having pain with movement that wraps around from his back to his chest. EKG and troponin are reassuring. Obtain chest x- ray and left shoulder x-rays. 06/30: No chest pain, or chest discomfort today. Status: Resolved Total Time Spent Total Time Spent: Today I spent 50 minutes seeing the patient, reviewing Expanse and EPIC notes/diagnostics, discussing the care plan with our care time that includes social work, PT/OT, pharmacy, RT, fdc and documenting my impressions and plan in the medical record. Subjective Date Seen: 07/01/25 Interval history: Patient was seen and examined at bedside. Patient is doing much better. Afebrile overnight. He denies abdominal pain. On examination his left scrotum is less swollen, less tender, less redness. Pending culture results and antibiotic sensitivities. Exam Narrative: Exam Narrative: Physical exam GENERAL: Comfortable, no acute distress. HEAD AND NECK: Atraumatic, normocephalic CARDIOVASCULAR: RRR. Normal S1, S2. No murmurs. RESPIRATORY: Clear to auscultation B/L. Good air entry B/L. No wheezes or rhonchi. GASTROINTESTINAL: Not distended, not tender to palpation. NEUROLOGY: Alert, awake, oriented X 3. Normal speech. G. URINARY: Left scrotum less swollen less tender and redness decreased PSYCH: Normal mood, normal affect. Const: Vital Signs, click to edit/add: Vital Signs - 24 hr 06/30/25 15:02 06/30/25 15:02 06/30/25 15:02 Temperature 97.4 F L Pulse Rate Pulse Rate [Pulse Oximeter] 70 70 Respiratory Rate 16 16 16 Blood Pressure [Le ft Arm] Blood Pressure [Ri ght Arm] 130/94 H Pulse Oximetry 96 96 [facility] 06/30/25 16:01 06/30/25 19:00 06/30/25 22:35 Temperature 97.5 F L Pulse Rate 65 77 Pulse Rate [Pulse Oximeter] 70 Respiratory Rate 18 Blood Pressure [Le ft Arm] 162/98 H Blood Pressure [Ri ght Arm] Pulse Oximetry 98 Oxygen Delivery [facility] Room Air 06/30/25 22:35 06/30/25 22:35 07/01/25 02:24 Temperature 97.8 F 97.6 F Pulse Rate Pulse Rate [Pulse Oximeter] 73 76 Respiratory Rate 18 18 20 Blood Pressure [Le ft Arm] Blood Pressure [Ri ght Arm] 125/86 148/99 H Pulse Oximetry 98 98 97 Oxygen Delivery [facility] Room Air Room Air Room Air 07/01/25 07:00 07/01/25 07:00 07/01/25 07:00 Temperature Pulse Rate 77 Pulse Rate [Pulse Oximeter] 85 Respiratory Rate 18 18 Blood Pressure [Le ft Arm] Blood Pressure [Ri ght Arm] Pulse Oximetry 97 Oxygen Delivery [facility] Room Air 07/01/25 07:00 07/01/25 11:00 Temperature 97.6 F 97.6 F Pulse Rate Pulse Rate [Pulse Oximeter] 85 75 Respiratory Rate 18 16 Blood Pressure [Le ft Arm] Blood Pressure [Ri ght Arm] 148/96 H 141/89 H Pulse Oximetry 97 95 Oxygen Delivery Me thod Room Air Room Air Labs Labs: Laboratory Results - last 24 hr 07/01/25 05:58 WBC 13.38 H RBC 4.37 Hgb 12.6 L Hct 38.1 MCV 87 MCH 29 MCHC 33 Plt Count 222 Sodium 136 Potassium 4.0 Chloride 104 Carbon Dioxide 22 Anion Gap 10 BUN 15 Creatinine 0.9 Estimated Creat Clear 67.93 Estimated GFR 90 Glucose 137 H Calcium 9.1 Total Bilirubin 0.5 AST 84 H ALT 83 H Alkaline Phosphatase 313 H C-Reactive Protein 17.6 H Total Protein 6.8 Albumin 3.5
[2025-07-01 15:00] VITALS: BP 110/79; PULSE 74; RESP 16; TEMP 36.6; O2SAT 95
--- NOTE | 2025-07-01 18:40 | PC.NURSE ---
End of shift: Patient is alert and oriented x4. VSS. on RA. tolerating a reg. diet. Patient using active ice to scrotum. scheduled Ibuprofen for pain. Patient ambulates independently to BR. at bedside. Afebrile this shift. IV to Ayde FELDMAN.
[2025-07-01 19:00] VITALS: BP 125/92; PULSE 70; RESP 16; TEMP 36.6; O2SAT 98
[2025-07-01] MEDS: cefTRIAXone 1 GM in 0.9 % SODIUM CHLORIDE Mini-bag 100 ML IVPB (20:20)
[2025-07-01] MEDS: ACETAMINOPHEN 325 MG TABLET 650 MG PO (20:20)
[2025-07-01] MEDS: ENOXAPARIN 40 MG/0.4 ML INJ SUBCUT (21:09)
[2025-07-01 23:00] VITALS: BP 125/92; PULSE 72; RESP 16; TEMP 36.6; O2SAT 98
[2025-07-02 02:40] VITALS: BP 121/54; PULSE 65; RESP 16; TEMP 36.6; O2SAT 98
[2025-07-02] MEDS: ACETAMINOPHEN 325 MG TABLET 650 MG PO (03:37)
[2025-07-02 06:23] LABS: Hematocrit 37.8 % (37.0-53.0); Hemoglobin* 12.4 gm/dL (13.5-17.5); Mean Corpuscular HGB Conc 33 gm/dL (32-36); Mean Corpuscular Hemoglobin 29 pg (26-34); Mean Corpuscular Volume 87 fL (80-100); Red Blood Count 4.34 m/uL (4.30-5.90); White Blood Count* 11.98 K/uL (4.50-11.00)
[2025-07-02 06:27] LABS: Slide Review Reflex No
[2025-07-02 06:32] LABS: Chloride* 105 mmol/L (96-114); Potassium* 4.1 mmol/L (3.6-5.1); Sodium* 135 mmol/L (135-149)
[2025-07-02 06:35] LABS: Blood Urea Nitrogen* 15 mg/dL (7-30); Creatinine* 0.9 mg/dL (0.5-1.5); Est. Creatinine Clearance* 67.93; Estimated Glomerular Filt Rate 90 ml/min
[2025-07-02 06:36] LABS: Anion Gap 7 mEq/L (7-15); Calcium* 8.9 mg/dL (8.4-10.6); Carbon Dioxide* 23 mmol/L (20-32); Glucose* 138 mg/dL (60-115)
[2025-07-02 07:50] VITALS: BP 126/95; PULSE 75; RESP 20; TEMP 37.2; O2SAT 95
[2025-07-02] MEDS: IBUPROFEN 400 MG TABLET 600 MG PO (08:30)
[2025-07-02] MEDS: SENNOSIDES/DOCUSATE TABLET 1 TAB PO (08:31)
[2025-07-02] MEDS: SODIUM CHLORIDE 0.9 % (FLUSH) 10 ML SYRINGE 5 ML IVF (08:31)
--- NOTE | 2025-07-02 10:21 | PM.DS1 ---
DS: Providers Provider Date Seen: 07/02/25 Date of admission: 06/29/25 21:13 Primary care physician: LIA GODOY DO Admitting Clinician: Kellen Conway MD Consults: 06/29/25 22:38 Consult to Mail Sorter [CONS] Routine Comment: Reason for Consult:: Medical Assistant Float Needed Attending Physician on discharge: Kellen Conway MD DS: Diagnosis Discharge Diagnosis (1) Gram-negative bacteremia: Status: Acute Problem details: -patient's blood cultures grew Gram-negative bacteria in both of his bottles. -E coli sensitive to levofloxacin is growing, will treat with levofloxacin 750 daily for 10 more days. -For GN-BSI, follow up blood cultures are unnecessary in most patients who are improving clinically on antibiotic therapy (2) Sepsis: Status: Resolved Problem details: - Meets SIRS criteria plus source of infection: UTI and epididymitis. Sepsis was initially severe with a lactate of greater than 2, which is now down to 1.6 after a fluid bolus, severe sepsis has resolved. - status post 2 L IV fluids (3) Acute UTI: Status: Acute Problem details: - status post 2 L IV fluids, will start him on IV fluid maintenance on 06/30. -currently on ceftriaxone and levofloxacin, will deescalate once we get urine/blood cultures results. -US CDC recommendations For epididymitis: 500 mg orally once a day for 10 days (When dosage in patients with CrCl at least 50 mL/min is 500 mg every 24 hours): -CrCl 20 to 49 mL/min: 500 mg orally or IV once, followed by 250 mg orally or IV every 24 hours -Ordered gonorrhea and chlamydia testing to rule out STDs and the need to treat for an STD. -07/01: Kidney function improved. Waiting for the blood culture results and for the antibiotic sensitivity 07/02: -patient's blood cultures grew Gram-negative bacteria in both of his bottles. -E coli sensitive to levofloxacin is growing, will treat with levofloxacin 750 daily for 10 more days. -For GN-BSI, follow up blood cultures are unnecessary in most patients who are improving clinically on antibiotic therapy (4) Epididymitis: Status: Acute Problem details: As above (5) BPH (benign prostatic hyperplasia): Status: Chronic Problem details: Used to take terazosin which worked for him, but he ran out a few years ago. (6) Left-sided chest pain: Status: Resolved Problem details: Patient has no cardiac history. He takes daily aspirin 325 mg. His family notes that he fell against his left shoulder a few days ago and this is about the time frame in which he has been having pain with movement that wraps around from his back to his chest. EKG and troponin are reassuring. Obtain chest x-ray and left shoulder x-rays. 06/30: No chest pain, or chest discomfort today. DS: Summary Hospital Course Hospital Course: A 74-year-old male patient with history of BPH who does not follow regularly with his primary care physician presents with sepsis and the source was left-sided epididymitis. Scrotal ultrasound showed the following: Left: 4.3 x 3.1 x 3.2 cm. Unremarkable sonographic appearance of the parenchyma. Appropriate flow demonstrated. Increased size and echogenicity of the left epididymis. Hydrocele. Patient was treated with IV antibiotics and improved immensely. In addition patient was found to have Gram-negative bacteremia. E coli sensitive to levofloxacin is growing, will treat with levofloxacin 750 daily for 10 more days. For GN-BSI, follow up blood cultures are unnecessary in most patients who are improving clinically on antibiotic therapy. Discussed with the family the need to follow-up with his primary care physician within 1 week to follow up with his infection and to consider urologist referral if needed. Time Spent with Patient Time attestation: Total time spent providing and/or coordinating discharge services: Exam Narrative: Exam Narrative: Physical exam GENERAL: Comfortable, no acute distress. HEAD AND NECK: Atraumatic, normocephalic CARDIOVASCULAR: RRR. Normal S1, S2. RESPIRATORY: Clear to auscultation B/L. Good air entry B/L. GASTROINTESTINAL: Not distended, not tender to palpation. GENITOURIN: Left scrotum is not red anymore, still swollen and mildly tender to touch. NEUROLOGY: Alert, awake, oriented X 3. Normal speech. PSYCH: Normal mood, normal affect. Const: Vital Signs, click to edit/add: Vital Signs - 24 hr 07/01/25 11:00 07/01/25 15:00 07/01/25 15:00 Temperature 97.6 F Pulse Rate [Pulse Oximeter] 75 74 Respiratory Rate 16 16 16 Blood Pressure [Ri ght Arm] 141/89 H Pulse Oximetry 95 95 Oxygen Delivery Me thod Room Air Room Air 07/01/25 15:00 07/01/25 19:00 07/01/25 23:00 Temperature 97.8 F 98 F Pulse Rate [Pulse Oximeter] 74 70 72 Respiratory Rate 16 16 16 Blood Pressure [Ri ght Arm] 110/79 125/92 H Pulse Oximetry 95 98 Oxygen Delivery Me thod Room Air Room Air 07/01/25 23:00 07/01/25 23:00 07/02/25 02:40 Temperature 98 F 98 F Pulse Rate [Pulse Oximeter] 72 65 Respiratory Rate 16 16 16 Blood Pressure [Ri ght Arm] 125/92 H 121/54 L Pulse Oximetry 98 98 98 Oxygen Delivery Me thod Room Air Room Air Room Air 07/02/25 07:50 07/02/25 07:50 Temperature 99.0 F Pulse Rate [Pulse Oximeter] 75 Respiratory Rate 20 Blood Pressure [Ri ght Arm] 126/95 H Pulse Oximetry 95 95 Oxygen Delivery Me thod Room Air Room Air DS: Data Data Completed and Pending Labs on day of discharge: Labs from last 24 hours 07/02/25 06:11 WBC 11.98 H RBC 4.34 Hgb 12.4 L Hct 37.8 MCV 87 MCH 29 MCHC 33 Plt Count 229 Sodium 135 Potassium 4.1 Chloride 105 Carbon Dioxide 23 Anion Gap 7 BUN 15 Creatinine 0.9 Estimated Creat Clear 67.93 Estimated GFR 90 Glucose 138 H Calcium 8.9 C-Reactive Protein 13.0 H Preliminary micro results at discharge 06/29/25 19:25 Blood Culture - Preliminary Blood Escherichia coli 06/29/25 20:13 Blood Culture - Preliminary Blood Escherichia coli Discharge Plan Discharge Disposition: Home w/ Parent or Adult Date of Admission: 06/29/25 21:13 Attending Provider on Discharge: Sydnee Parrish Primary Care Provider: LIA GODOY Condition: Stable Anticipated Discharge Date/Time: 07/02/25 10:02 Discharge Medications: New levofloxacin 750 mg tablet 750 mg PO DAILY Qty: 10 0RF ibuprofen 400 mg tablet 400 mg PO Q8H PRNQty: 20 0RF Rx Instructions: Take after meals acetaminophen [Tylenol] 325 mg tablet 650 mg PO Q8H PRNQty: 60 0RF omeprazole 20 mg capsule,delayed release(DR/EC) 20 mg PO DAILY Qty: 10 0RF Discharge Orders: Discharge Order (Routine); Ordered 07/02/25 Ordered By: Sydnee Parrish Patient Education: Epididymitis (GEN) Additional Instructions: -you need to follow-up with your primary care physician within 1 week -discuss with your primary care physician the need for referral to a urologist. -you need to complete full course of oral antibiotics, you need to take levofloxacin once a day for the next 10 days -if you start to have fevers or symptoms get worse you need to visit an urgent care clinic or an ER. Activity Level: No Restrictions and Activity as Tolerated Discharge Diet: Regular Follow Up Appointments: LIA GODOY DO [Primary Care Provider, Family Practice] - 07/10/25 12:50 pm Referral Note: [facility] for hospital follow-up. Forms: Work/School Release, [facility] Info Instructions
--- NOTE | 2025-07-02 11:20 | PC.NURSE ---
Pt doing well today. VSS. Afebrile. Tolerating regular diet and oral antibiotics. Swelling and pain to scrotum is improving. Pt discharge instructions reviewed and signed. Pt discharged home via at 1110.
== END 2025-07-02 11:10 | disposition home or self-care (01) | DRG 720 ==
LOC: ED 21:10 → MEDSURG 21:14
PROVIDERS: Student in an Organized Health Care Education/Training Program; Admitting Provider Family Medicine; Emergency Provider Family Medicine; PCP Student in an Organized Health Care Education/Training Program; Visit Provider Family Medicine
DX: A41.51 Sepsis due to Escherichia coli [E. coli] (principal); N39.0 Urinary tract infection, site not specified; N45.3 Epididymo-orchitis; N50.3 Cyst of epididymis; R07.9 Chest pain, unspecified; N40.0 Benign prostatic hyperplasia without lower urinary tract symptoms
CPT/HCPCS: 36415; 51798; 71045; 73030; 76870; 80048; 80053; 81001; 83605; 84484; 85025; 85027; 86140; 87040; 87086; 87491; 87591; 87631; 87800; 93005; 93976; 94761; 99284; 99285; 99291; A9270; J0696; J1650; J1885; J7030; J7120